=== PATIENT | female | born 1930 | race Caucasian/White ===

== ENCOUNTER 2020-04-09 14:11 | Inpatient (IN) | payer MEDICARE ==
[~2020-04-09] VITALS: Ht 162.6 cm; Wt 56.7 kg
[~2020-04-09 14:11] MED LIST: FLAGYL500 MG PO
[2020-04-09 14:35] VITALS: BP 127/79; BMI 21.5
--- NOTE | 2020-04-09 15:05 | NUR ---
PATIENT ADMITTED TO ROOM 2226. IV SITED TO [facility] AFTER TWO ATTEMPT WITH 22 GAUGE. BED LOW. BED ALARM ON. CALL HERNÁNDEZ AND PERSONAL ITEMS IN REACH. EDUCATION PROVIDED TO PATIENT AND DAUGHTER AT BEDSIDE THAT NURSE NEEDS UA FROM PATIENT. HAT IN TOILET. DAUGHTER WANTS TO LET PATIENT TRY TO USE HAT IN TOILET BEFORE CATH PATIENT.
[2020-04-09 15:12] LABS: BASOPHILS 0.3 % (0-2); EOSINOPHILS 0.8 % (0-7); HEMATOCRIT 38.1 % (36.0-48.0); HEMOGLOBIN 12.4 g/dL (12-16); IMMATURE GRANULOCYTES 0.4 % (0-5); LYMPHOCYTES 10.6 % (15-50); MCH 31.6 pg (26.0-34.0); MCHC 32.5 g/dL (31.0-37.0); MCV 96.9 fL (80.0-100.0); MEAN PLATELET VOLUME 9.9 fL (7.4-10.4); MONOCYTES 9.4 % (2-11); NEUTROPHILS 78.5 % (40-80); PLATELET COUNT 311 10x3/uL (130-400); RBC 3.93 10x6/uL (4.00-5.40); RDW 13.8 % (11.5-14.5); WBC 11.2 10x3/uL (4.8-10.8)
--- NOTE | 2020-04-09 15:13 | NUR ---
PT C/O SHORTNESS OF BREATH, O2 SATURATION DURING VS WAS BETWEEN 84-87, PLACED PT ON 2L OF OXYGWN WHICH BROUGHT PT UP TO 88-89 TURNED PT UP TO 4L AND PT IS NOW AT 93 ON 4L. CONTINUE WITH PLAN OF CARE
[2020-04-09] MEDS ORDERED: ACETAMINOPHEN325 MG PO (15:32)
[2020-04-09] MEDS ORDERED: TENORMIN25 MG PO (15:33)
[2020-04-09] MEDS ORDERED: FUROSEMIDE20 MG PO (15:34)
[2020-04-09] MEDS ORDERED: K-TAB10 MEQ PO (15:35)
[2020-04-09 15:39] LABS: BILIRUBIN NEGATIVE (NEGATIVE); KETONE NEGATIVE (NEGATIVE); NITRITE POSITIVE (NEGATIVE); UROBILINOGEN NORMAL (NORMAL)
[2020-04-09 15:41] LABS: WHITE CELLS - URINE >50 /hpf (0-5)
[2020-04-09 15:43] LABS: BACTERIA MANY /hpf (NONE SEEN); EPITHELIAL CELLS OCC /hpf (0-5)
[2020-04-09 15:50] LABS: CARBON DIOXIDE 25.6 mmol/L (21.0-32.0); CREATININE - SERUM 1.4 mg/dL (0.6-1.3); POTASSIUM - SERUM 4.6 mmol/L (3.5-5.1)
[2020-04-09 15:57] LABS: ALBUMIN 3.5 g/dL (3.4-5.0); BILIRUBIN - TOTAL 0.31 mg/dL (0.2-1.3); PROTEIN - SERUM 7.3 g/dL (6.4-8.2)
--- NOTE | 2020-04-09 18:50 | NUR ---
CONSENTS OBTAINED FOR PROCEDURE.
--- NOTE | 2020-04-09 19:30 | NUR ---
SITTING UP IN BED. ALERT AND ORIENTED TO SELF ONLY. CONFUSED. [place]. DAUGHTER AT BEDSIDE. DIFF ANSWERING QUESTIONS AND STAYING ON TASK. SOB NOTED WITH USE OF ABD ACCESSORY MUSCLES. O2 @ 4L/NC. NONPROD COUGH NOTED. SCABS NOTED TO RT MCALLISTER. URINE EMPTIED FROM BSC WAS DARK CLOUDY SURENDRA. HERNAN ALARM ON. AMB WITH ASSIST. PT HAS DEMENTIA. SALINE LOCK NOTED TO LT FOREARM. BBS DIMINISHED. NO ACUTE DISTRESS. SR ELEVATED X2. CL IN REACH.
[2020-04-09 20:00] VITALS: BP 142/71
--- NOTE | 2020-04-09 20:35 | NUR ---
MEDICATED WITH TYLENOL FOR C/O HEADACHE. CL IN REACH.
--- NOTE | 2020-04-09 21:05 | NUR ---
RECEIVED CALL FROM PHARMACY ASKING IF DR BUTTERFIELD STILL WANTS PT TO TAKE MACROBID CONSIDERING HER BUN/CR IS ELEVATED. SPOKE WITH DOUGLAS SALINAS REPORT CLERK FOR DR BUTTERFIELD WHO STATED THAT YES SHE NEEDS TO TAKE THE MACROBID. NOTIFIED DEANNA IN PHARMACY OF THIS.
--- NOTE | 2020-04-09 22:00 | NUR ---
SITTING UP ON SIDE OF BED. DAUGHTER AT BEDSIDE. O2 IS OFF. O2 PUT BACK ON PT. GIVEN APPLESAUCE FOR SNACK. INFORMED OF NPO AFTER MIDNIGHT AND PT AND DAUGHTER VERBALIZED UNDERSTANDING. CL IN REACH.
[2020-04-10] VITALS (12 sets, daily range): BP systolic 102–138; BP diastolic 46–68; Ht 162.6 cm; Wt 56.7 kg
--- NOTE | 2020-04-10 01:25 | NUR ---
NOTIFIED PHARMACY OF NEED TO VERIFY ROCEPHIN AND VIBRAMYCIN
--- NOTE | 2020-04-10 03:36 | NUR ---
SECOND IV ACCESS OBTAINED IN RT FOREARM WITH 22G. PT KIRA WELL. ASSISTED UP TO BSC TO VOID. BACK TO BED. HERNAN ON. DAUGHTER AT BEDSIDE. CL IN REACH.
--- NOTE | 2020-04-10 07:45 | NUR ---
RECEIVED BEDSIDE REPORT. PT A&O X4, DAUGHTER AT BEDSIDE STATES HER MOTHER SOMEITMES SHOWS S/S OF DEMENTIA. PIV IN LEFT FA, S/L, PATENT, NO REDNESS OR SWELLING. PIV IN RIGHT FA, S/L, PATENT, NO REDNESS OR SWELLING. BS DIMINISHED ALL LOBES, USE OF ACCESS MUSCLES. SKIN TEAR ON RIGHT MCALLISTER. BRUISES ON BILAT UPPER EXTREMITIES. PT ABLE TO AMBULATE TO BSC WITH ONE PERSON ASSIST. EDUCATED PT ON NEED FOR RESP CULTURE, CL AND NEEDS, VERBALIZED UNDERSTANDING. BED LOW, RAILS X2. CL IN REACH. WILL CONTINUE TO MONITOR.
[2020-04-10 07:50] LABS: BASOPHILS 0.2 % (0-2); EOSINOPHILS 0.6 % (0-7); HEMATOCRIT 38.7 % (36.0-48.0); HEMOGLOBIN 12.8 g/dL (12-16); IMMATURE GRANULOCYTES 0.3 % (0-5); LYMPHOCYTES 13.9 % (15-50); MCH 31.8 pg (26.0-34.0); MCHC 33.1 g/dL (31.0-37.0); MCV 96.3 fL (80.0-100.0); MONOCYTES 9.9 % (2-11); NEUTROPHILS 75.1 % (40-80); PLATELET COUNT 309 10x3/uL (130-400); RBC 4.02 10x6/uL (4.00-5.40); RDW 13.7 % (11.5-14.5); WBC 9.7 10x3/uL (4.8-10.8)
[2020-04-10 08:07] LABS: ANION GAP 13.5 mmol/L (8-16); CALCIUM 8.4 mg/dL (8.5-10.1); CARBON DIOXIDE 25.6 mmol/L (21.0-32.0); CREATININE - SERUM 1.2 mg/dL (0.6-1.3); POTASSIUM - SERUM 4.1 mmol/L (3.5-5.1); PROTEIN - SERUM 7.4 g/dL (6.4-8.2)
[2020-04-10 08:08] LABS: APTT 28.5 SECONDS (22.8-39.4); INR 1.13 (0.85-1.17); PROTIME 14.5 SECONDS (11.6-15.0)
--- NOTE | 2020-04-10 09:45 | NUR ---
REMOVED PIV IN RIGHT FA, CATHETER INTACT, NO REDNESS OR SWELLING, PT TOLERATED WELL. BED LOW, CL IN REACH.
--- NOTE | 2020-04-10 11:30 | NUR ---
RECEIVED PT FROM CT. VS WNL. PT A&O X2, DISORINTATED TO TIME AND SITUATION. BED LOW, WILL CONTINUE TO MONITOR Q 15 MIN.
--- NOTE | 2020-04-10 18:35 | NUR ---
PIV IN LEFT FOREARM INFILTRATED. REMOVED PIV, CATHETER INTACT, PT TOLERATED WELL. CL IN REACH, BED LOW.
[2020-04-10 20:43] LABS: MACROPHAGES BF 3 %; MESOTHELIALS BF 2 %; NEUT - BF 6 %
--- NOTE | 2020-04-10 23:44 | NUR ---
HAS BEEN SLEEPING. ATTEMPTED TO RESTART IV BUT PT REFUSES AND IS AGITATED. HAS PULLED O2 OFF AND REFUSES TO PUT IT BACK ON. DAUGHTER AT BEDSIDE.
--- NOTE | 2020-04-10 23:55 | NUR ---
SAO2% 90%. TALKED PT INTO LETTING STAFF PUT O2 BACK ON FOR THE MOMENT
--- NOTE | 2020-04-11 01:46 | NUR ---
DOUGLAS SALINAS HERE. NOTIFIED OF PT REFUSAL OF IV. NEW ORDERS NOTED TO D/C ROCEPHIN AND DOXY IV AND START DOXY PO AND OMNICEF PO X 7 DAYS.
[2020-04-11 04:00] VITALS: BP 109/44
--- NOTE | 2020-04-11 04:00 | NUR ---
ASSISTED UP TO BSC TO VOID. VOIDED SMALL AMOUNT. WAS INCONT OF URINE IN ADULT BRIEF. ASSISTED BACK TO BED. O2 @ 3L/NC. DAUGHTER AT BEDSIDE. SR ELEVATED X2. CL IN REACH. HERNAN ALARM ON.
[2020-04-11 05:14] LABS: BASOPHILS 0.2 % (0-2); EOSINOPHILS 1.1 % (0-7); HEMATOCRIT 36.5 % (36.0-48.0); HEMOGLOBIN 12.2 g/dL (12-16); IMMATURE GRANULOCYTES 0.3 % (0-5); LYMPHOCYTES 14.9 % (15-50); MCH 31.5 pg (26.0-34.0); MCHC 33.4 g/dL (31.0-37.0); MEAN PLATELET VOLUME 10.3 fL (7.4-10.4); MONOCYTES 8.5 % (2-11); PLATELET COUNT 288 10x3/uL (130-400); RBC 3.87 10x6/uL (4.00-5.40); RDW 13.8 % (11.5-14.5); WBC 10.5 10x3/uL (4.8-10.8)
[2020-04-11 05:15] LABS: MCV 94.3 fL (80.0-100.0)
[2020-04-11 05:18] LABS: ALBUMIN 2.7 g/dL (3.4-5.0); ANION GAP 14.2 mmol/L (8-16); BILIRUBIN - TOTAL 0.38 mg/dL (0.2-1.3); CALCIUM 8.4 mg/dL (8.5-10.1); CARBON DIOXIDE 23.5 mmol/L (21.0-32.0); CREATININE - SERUM 1.3 mg/dL (0.6-1.3); POTASSIUM - SERUM 3.7 mmol/L (3.5-5.1); PROTEIN - SERUM 6.6 g/dL (6.4-8.2)
--- NOTE | 2020-04-11 06:15 | NUR ---
RESTING WITH EYES CLOSED. RESP NONLABORED. O2 @ 3L/NC. DAUGHTER AT BEDSIDE. NO DISTRESS. CL IN REACH. HERNAN ALARM ON.
--- NOTE | 2020-04-11 07:47 | NUR ---
PATIENT RESTING IN BED. CALL LIGHT IN REACH, DENIES PAIN OR NEEDS. WILL CONTINUE TO MONITOR.
[2020-04-11 09:13] LABS: ANA REFLEX - DIRECT Negative (Negative)
[2020-04-11 10:22] VITALS: BP 115/63
[2020-04-11 13:46] VITALS: BP 147/69
[2020-04-11 18:07] VITALS: BP 109/56
[2020-04-11 19:08] LABS: ACID FAST SMEAR Negative (()); AFB SPECIMEN PROCESSING Not Indicated (())
[2020-04-11 20:00] VITALS: BP 111/53
[2020-04-12 04:00] VITALS: BP 117/53
--- NOTE | 2020-04-12 04:39 | NUR ---
ASSESSED AT THE BEGINNING OF THE SHIFT. PT IS ALERT AND ORIENTED, ABLE TO VERBALIZE NEEDS. HER FAMILY REMAINED AT THE BEDSIDE. WE ARE ASSISTING HER UP TO VOID IN THE BSC AND SHE IS ABLE TO DO IT WITH ONE PERSON ASSIT BUT SHE IS WEAK. STILL HAS A SMALL DRESSING OVER HER THORACENTISIS AREA BUT IT LOOKS GOOD. O2 AT 3 LITERS AND THERE IS A HERNAN ON HER BED.
--- NOTE | 2020-04-12 07:44 | NUR ---
PATIENT IN BED ASLEEP. FAMILY AT BEDSIDE. DENIES PAIN OR NEEDS. BED LOW POSITION, CALL LIGHT IN REACH. WILL CONTINUE TO MONITOR.
--- NOTE | 2020-04-12 08:59 | NUR ---
IV CATH REMOVED FROM LEFT ARM. NO BLOOD RETURN AND SWELLED UP WHEN ATTEMPTING TO FLUSH. CATH TIP INTACT.
[2020-04-12 09:52] VITALS: BP 138/59
--- NOTE | 2020-04-12 13:04 | NUR ---
Nutrition follow-up: Diet advanced to regular as tolerated with Ensure TID PO intake ~70% average of last 7 meals Labs reviewed Wt: 124# +BM RDN following.
[2020-04-12 13:23] VITALS: BP 124/61
[2020-04-12 14:10] LABS: FUNGUS STAIN Final report (())
[2020-04-12 17:49] VITALS: BP 111/58
[2020-04-13 04:00] VITALS: BP 101/44
[2020-04-13 05:59] LABS: BASOPHILS 0.3 % (0-2); EOSINOPHILS 3.1 % (0-7); HEMATOCRIT 31.7 % (36.0-48.0); HEMOGLOBIN 10.3 g/dL (12-16); IMMATURE GRANULOCYTES 0.7 % (0-5); LYMPHOCYTES 11.3 % (15-50); MCHC 32.5 g/dL (31.0-37.0); MCV 95.5 fL (80.0-100.0); MEAN PLATELET VOLUME 10.2 fL (7.4-10.4); MONOCYTES 10.7 % (2-11); NEUTROPHILS 73.9 % (40-80); PLATELET COUNT 270 10x3/uL (130-400); RBC 3.32 10x6/uL (4.00-5.40); RDW 14.4 % (11.5-14.5); WBC 8.8 10x3/uL (4.8-10.8)
[2020-04-13 06:01] LABS: ANION GAP 13.1 mmol/L (8-16); CALCIUM 8.3 mg/dL (8.5-10.1); CARBON DIOXIDE 23.6 mmol/L (21.0-32.0); CREATININE - SERUM 1.3 mg/dL (0.6-1.3); POTASSIUM - SERUM 3.7 mmol/L (3.5-5.1)
--- NOTE | 2020-04-13 08:00 | NUR ---
ASSESSMENT PER FLOW SHEET. PATIENT IS WITHOUT DISTRESS.FALL PREVENTION IN PLACE WITH HERNAN.FAMILY AT BEDSIDE
[2020-04-13 09:49] VITALS: BP 129/59
[2020-04-13 12:42] VITALS: BP 123/65
[2020-04-13 17:39] VITALS: BP 136/68
--- NOTE | 2020-04-13 18:40 | NUR ---
REMAINS WITHOUT NEEDS,WITHOUT CHANGE. CONT PLAN OF CARE
[2020-04-13 20:00] VITALS: BP 121/47
--- NOTE | 2020-04-13 20:30 | NUR ---
AWAKE. LYING IN BED. ORIENTED TO SELF AND PLACE. CONFUSED. DAUGHTER AT BEDSIDE. RESP IRREG. SOB WITH EXERTION. O2 @ 3L/NC. NO IV ACCESS. DENIES PAIN. INCONT OF BLADDER AT TIMES. ASSISTED UP TO BR TO VOID. BRIEF CHANGED. NO DISTRESS. HERNAN ALARM ON. SR ELEVATED X2. CL IN REACH.
--- NOTE | 2020-04-14 00:05 | NUR ---
PTS DAUGHTER REFUSED MIDNIGHT V/S BECAUSE PT IS SLEEPING WELL AT THIS TIME.
--- NOTE | 2020-04-14 01:40 | NUR ---
ASSISTED UP TO BSC PER STAFF X2 TO VOID. GAIT IS VERY UNSTEADY. WEAKNESS NOTED. BACK TO BED AND HERNAN ON. DAUGHTER AT BEDSIDE.
[2020-04-14 04:00] VITALS: BP 123/55
[2020-04-14] MEDS ORDERED: OMNICEF300 MG PO (07:17)
[2020-04-14 09:17] VITALS: BP 123/53
--- NOTE | 2020-04-14 09:21 | NUR ---
ASSESSMENT PER FLOW SHEET. PATIENT IS WITHOUT DISTRESS.FAMILY AT BEDSIDE.PATIENT WILL DC TODAY SOMETIME BACK TO [facility]. HERNAN ALARM ON AND WORKING.
[2020-04-14 13:08] VITALS: BP 136/67
--- NOTE | 2020-04-14 16:51 | MORECARE ---
CASE MANAGEMENT DISCHARGE SUMMARY PATIENT: JOCELYN OROZCO UNIT: [id number] ADM DATE: 04/09/20 AGE: 89 : [birth year] SEX: F ROOM/BED: D.2226 AUTHOR: RADHADOC PHYSICIAN: REFERRING PHYSICIAN: REMA BUTTERFIELD MD DATE OF SERVICE: 04/14/20 Discharge Plan Patient Name: JOCELYN OROZCO Facility[facility]:[place] : 1930 Planned Disposition: Longterm Facility Anticipated Discharge Date: Discharge Date: Expected LOS: Initial Reviewer: [email or web address] Initial Review Date: 04/09/2020 Generated: 04/14/20 5:50 pm Comments DCP- Discharge Planning Updated by [id number]: Jaymie Valentine on 04/14/20 3:[address] Patient Name: JOCELYN OROZCO Admission Status: Elective Accout number: [id number] Admission Date: 04-09-2020 : 1930 Admission Diagnosis:PLEURAL EFFUSION, NOT ELSEWHERE CLASSIFIED Attending: REMA BUTTERFIELD Current LOS: 5 Anticipated DC Date: Planned Disposition: Primary Insurance: MEDICARE A & B Discharge Planning Comments: CM met with patient and her daughter who is at bedside to complete initial dc planning assessment. CM educated patient on the CM role and verbal consent given by patient to complete assessment. CM verified patient's address, phone number, and emergency contact phone numbers. Patient lives at [facility] in a long[facility]term [facility] bed. At discharge patient plans to return to [place] in a [facility] bed for rehab and feels this is a safe discharge. DHRUV signed to return to [place]. Transportation provider at discharge will be as designated by [facility]. The patient is on continuous oxygen so transportation provider will provide oxygen during route. CM called [facility] and spoke with Magaly about pending discharge. the patient will need to have a Covid neg test prior to admission. CM spoke with Coleman COLE about screening and orders placed. Will await results. CM will continue to follow and will assist as needed with dc plans/needs. DC IMM delivered, explained, signed by the patient, and placed in chart. Signed form also left with the patient. Desk Pens Assembler: Jaymie Valentine MSN,RN,CM External Providers External Provider: [facility] Next Contact Date: Service Request Date: Service Type: Resolution: Reviewer: Comments: Coverage Notice Reviewer: [id number] - Jaymie Valentine Notice Issued Date-Time: 04/13/2020 16:34 Notice Type: IM Discharge Notice Notice Delivered To: Patient Relationship to Patient: Hair Or Beauty Salon Manager Name: Delivery Method: HAND - Hand Delivered Joan Days: Prior Verbal Notification: Recipient Understood Notice: Yes Recipient Signature: Yes Med Rec Note Co-signed by Attending: Coverage Notice Comment: dc imm delivered Patient Name: JOCELYN OROZCO Page [id number] at 1651 All edits/amendments must be made on the electronic document DICTATION DATE: 04/14/201650 MODEL DRESSER: EDDIE 04/14/201650 RPT#: [id number] DC DATE: STATUS: ADM IN [id number] [place] [address] END OF REPORT
[2020-04-14 17:29] VITALS: BP 115/59
[2020-04-14 20:00] VITALS: BP 136/60
[2020-04-15 04:00] VITALS: BP 132/60
--- NOTE | 2020-04-15 08:30 | NUR ---
PATIENT IN BED WITH NO COMPLAINTS OR SIGNS OF DISTRESS. FAMILY AT BEDSIDE. CALL LIGHT WITHIN REACH.
[2020-04-15 09:27] VITALS: BP 113/46
[2020-04-15 13:45] VITALS: BP 117/61
[2020-04-15 17:48] VITALS: BP 136/67
--- NOTE | 2020-04-15 18:30 | NUR ---
PATIENT IN BED WITH FAMILY AT BEDSIDE. PLACED DUODERM OVER DRY MOLE ON BACK. STATED IT WAS HURTING. CALL LIGHT WITHIN REACH.
[2020-04-15 20:28] VITALS: BP 128/66
[2020-04-16 00:24] VITALS: BP 136/58
[2020-04-16 04:51] VITALS: BP 123/58
[2020-04-16 06:41] LABS: BASOPHILS 0.4 % (0-2); EOSINOPHILS 4.1 % (0-7); HEMATOCRIT 32.5 % (36.0-48.0); HEMOGLOBIN 10.5 g/dL (12-16); IMMATURE GRANULOCYTES 0.4 % (0-5); LYMPHOCYTES 11.7 % (15-50); MCH 31.3 pg (26.0-34.0); MCHC 32.3 g/dL (31.0-37.0); MCV 96.7 fL (80.0-100.0); MEAN PLATELET VOLUME 9.8 fL (7.4-10.4); MONOCYTES 12.6 % (2-11); NEUTROPHILS 70.8 % (40-80); PLATELET COUNT 308 10x3/uL (130-400); RBC 3.36 10x6/uL (4.00-5.40); RDW 14.3 % (11.5-14.5); WBC 7.3 10x3/uL (4.8-10.8)
[2020-04-16 06:42] LABS: INR 1.04 (0.85-1.17); PROTIME 13.6 SECONDS (11.6-15.0)
[2020-04-16 06:56] LABS: ANION GAP 15.9 mmol/L (8-16); CALCIUM 8.8 mg/dL (8.5-10.1); CARBON DIOXIDE 22.9 mmol/L (21.0-32.0); CREATININE - SERUM 1.1 mg/dL (0.6-1.3); POTASSIUM - SERUM 3.8 mmol/L (3.5-5.1)
--- NOTE | 2020-04-16 07:36 | NUR ---
ALERT AND ORIENTED. LUNGS DIMINISHED BILATERALLY. HEART SOUNDS S1 AND S2 HEARD IN ALL ZHANG. BOWEL SOUNDS ACTIVE X 4. IV STARTED TO RFA AFTER ONE ATTEMP WITH 22 GAUGE. DENIES NEEDS. BED LOW. CALL HERNÁNDEZ AND PERSONAL ITEMS IN REACH. DAUGHTER AT BEDSIDE. WILL CONTINUE TO MONITOR.
[2020-04-16 08:41] VITALS: BP 127/60
--- NOTE | 2020-04-16 10:58 | NUR ---
PATIENT DAUGHTER AT BEDSIDE MADE DECISION WITH SISTER AND IR TEAM THAT DOES NOT WANT TO HAVE LYMPH NODE BIOPSY PROCEDURE TODAY. STATES PATIENT WILL NOT BE PERSUING TREATMENT EVEN IF RESULTS COME BACK MALIGNANT. PATIENT AND DAUGHTER STATES WANT TO GO HOME AND PERSUE OUTPATIENT OPTIONS. DOUGLAS LOPEZ MADE AWARE.
--- NOTE | 2020-04-16 11:53 | NUR ---
RESTING IN BED. DENIES NEEDS. WILL CONTINUE TO MONITOR.
[2020-04-16 13:12] VITALS: BP 132/70
[2020-04-16 16:24] VITALS: BP 127/71
[2020-04-16 20:00] VITALS: BP 130/78
[2020-04-17 04:00] VITALS: BP 136/65
[2020-04-17 06:43] LABS: ANION GAP 13.7 mmol/L (8-16); CALCIUM 9.1 mg/dL (8.5-10.1); CARBON DIOXIDE 24.3 mmol/L (21.0-32.0)
[2020-04-17 06:48] LABS: BASOPHILS 0.5 % (0-2); EOSINOPHILS 4.4 % (0-7); HEMATOCRIT 36.2 % (36.0-48.0); HEMOGLOBIN 11.7 g/dL (12-16); IMMATURE GRANULOCYTES 0.2 % (0-5); LYMPHOCYTES 13.8 % (15-50); MCH 31.2 pg (26.0-34.0); MCHC 32.3 g/dL (31.0-37.0); MCV 96.5 fL (80.0-100.0); MONOCYTES 11.3 % (2-11); NEUTROPHILS 69.8 % (40-80); PLATELET COUNT 335 10x3/uL (130-400); RBC 3.75 10x6/uL (4.00-5.40); RDW 14.2 % (11.5-14.5); WBC 8.3 10x3/uL (4.8-10.8)
[2020-04-17 09:18] VITALS: BP 146/64
[2020-04-17 12:27] VITALS: BP 139/70
--- NOTE | 2020-04-17 13:32 | NUR ---
Nutrition follow-up: Diet: regular PO Intake ~50% of most meals Labs reviewed Wt: 124# Ensure with meals RND following.
[2020-04-17 18:01] VITALS: BP 135/75
[2020-04-17 20:00] VITALS: BP 127/79
--- NOTE | 2020-04-17 20:00 | NUR ---
PT SITTING UP IN BED WITHOUT DISTRESS, DAUGHTER AT BEDSIDE. DENIES NEEDS AT THIS TIME. CL IN REACH, WILL CTM
--- NOTE | 2020-04-17 21:00 | NUR ---
PT STATES SHE HAS A REALLY BAD HEADACHE. GAVE TYLENOL ORDERED. DENIES OTHER NEEDS, WILL CTM
--- NOTE | 2020-04-17 23:30 | NUR ---
PT STATES SHE IS HAVING PAIN IN HER CHEST. CANNOT DESCRIBE IT. VSS. DAUGHTER STATES SHE HAD BEEN COMPLAINING EARLIER ABOUT HER STOMACH. GAVE PT RAMÓN, WILL SAHILM
[2020-04-18] VITALS: BP 127/72
--- NOTE | 2020-04-18 00:30 | NUR ---
PT STATES PAIN IN HER CHEST IS BETTER. ASSISTED TO BEDSIDE COMMODE AND BACK TO BED TO VOID. DENIES OTHER NEEDS. CL IN REACH, WILL CTM
[2020-04-18 04:00] VITALS: BP 122/57
--- NOTE | 2020-04-18 07:15 | NUR ---
RECEIVED BEDSIDE REPORT. PT LAYING IN BED, A&O X2, DISORIENTATED TO TIME AND SITUATION. DENIES PAIN. PIV IN RIGHT WRIST. BRUISES ON BILAT UPPER EXTREMITIES. PT ABLE TO AMBULATE WITH ONE PERSON ASSIST. EDUCATED PT AND DAUGHTER ON CL AND NEEDS. BED LOW, RAILS X2. CL IN REACH, WILL CONTINUE TO MONITOR.
[2020-04-18 09:48] VITALS: BP 121/74
--- NOTE | 2020-04-18 10:30 | NUR ---
PT AND DAUGHTER WANTING TO KNOW WHAT IS GOING ON WITH D/C TODAY. SPOKE WITH CM, WAITING TO HEAR BACK FROM [facility] ON ROOM AVAILABILITY.
--- NOTE | 2020-04-18 11:45 | NUR ---
SPOKE WITH NURSE AT [facility] ABOUT PT BEING D/C AND TRANSFERRING BACK TO FACILITY. NURSE REPORTED THAT THEY HAD NO KNOWLEDGE OF PT BEING D/C FROM HERE AND BEING TRANSFERRED BACK. SPOKE WITH OUSMANE, SHE HAS BEEN SPEAKING TO JONATHAN OMER AND SHE HAS ALL INFORMATION NEEDED. WAITING FOR NURSE AT [facility] TO CALL FOR REPORT.
[2020-04-18 12:00] VITALS: BP 138/50
--- NOTE | 2020-04-18 12:36 | MORECARE ---
CASE MANAGEMENT DISCHARGE SUMMARY PATIENT: JOCELYN OROZCO UNIT: [id number] ADM DATE: 04/09/20 AGE: 89 : [birth year] SEX: F ROOM/BED: D.2226 AUTHOR: RADHADOC PHYSICIAN: REFERRING PHYSICIAN: REMA BUTTERFIELD MD DATE OF SERVICE: 04/18/20 Discharge Plan Patient Name: JOCELYN OROZCO Facility: [facility]:[place] : 1930 Planned Disposition: Assisted Facility Anticipated Discharge Date: Discharge Date: Expected LOS: Initial Reviewer: [id number] Initial Review Date: 04/09/2020 Generated: 04/18/20 1:35 pm Comments DCP- Discharge Planning Updated by [id number]: Jaymie Valentine on 04/14/20 3:[address] Patient Name: JOCELYN OROZCO Admission Status: Elective Accout number: [id number] Admission Date: 04-09-2020 : 1930 Admission Diagnosis:PLEURAL EFFUSION, NOT ELSEWHERE CLASSIFIED Attending: REMA BUTTERFIELD Current LOS: 5 Anticipated DC Date: Planned Disposition: Primary Insurance: MEDICARE A & B Discharge Planning Comments: CM met with patient and her daughter who is at bedside to complete initial dc planning assessment. CM educated patient on the CM role and verbal consent given by patient to complete assessment. CM verified patient's address, phone number, and emergency contact phone numbers. Patient lives at [facility] in a long[facility]term [facility] bed. At discharge patient plans to return to [place] in a [facility] bed for rehab and feels this is a safe discharge. DHRUV signed to return to [place]. Transportation provider at discharge will be as designated by [facility]. The patient is on continuous oxygen so transportation provider will provide oxygen during route. CM called [facility] and spoke with Magaly about pending discharge. the patient will need to have a Covid neg test prior to admission. CM spoke with Coleman COLE about screening and orders placed. Will await results. CM will continue to follow and will assist as needed with dc plans/needs. DC IMM delivered, explained, signed by the patient, and placed in chart. Signed form also left with the patient. Pharmacist In Charge: Jaymie Valentine MSN,RN,CM Coverage Notice Reviewer: [id number] - Jaymie Valentine Notice Issued Date-Time: 04/13/2020 16:34 Notice Type: IM Discharge Notice Notice Delivered To: Patient Relationship to Patient: Clinical Quality Assurance Associate Name: Delivery Method: HAND - Hand Delivered Joan Days: Prior Verbal Notification: Recipient Understood Notice: Yes Recipient Signature: Yes Med Rec Note Co-signed by Attending: Coverage Notice Comment: dc imm delivered Last DP export: 04/14/20 3:51 pm Patient Name: JOCELYN OROZCO Page [phone] at 1236 All edits/amendments must be made on the electronic document DICTATION DATE: 04/18/20 1236 MASTER CRAFTSMAN: EDDIE 04/18/20 1236 RPT#: [id number] DC DATE: STATUS: ADM IN [facility] [address] [place] [address] END OF REPORT
--- NOTE | 2020-04-18 12:44 | MORECARE ---
CASE MANAGEMENT DISCHARGE SUMMARY PATIENT: JOCELYN OROZCO UNIT: [id number] ADM DATE: 04/09/20 AGE: 89 : [birth year] SEX: F ROOM/BED: D.2226 AUTHOR: RADHADOC PHYSICIAN: REFERRING PHYSICIAN: REMA BUTTERFIELD MD DATE OF SERVICE: 04/18/20 Discharge Plan Patient Name: JOCELYN OROZCO Facility: [facility]:[place] : 1930 Planned Disposition: Penitentiary Facility Anticipated Discharge Date: Discharge Date: Expected LOS: Initial Reviewer: [email or web address] Initial Review Date: 04/09/2020 Generated: 04/18/20 1:43 pm Comments DCP- Discharge Planning Updated by [email or web address]: Katrin Cain on 04/18/20 11:[address] Patient Name: JOCELYN OROZCO Admission Status: Elective Accout number: [id number] Admission Date: 04-09-2020 : 1930 Admission Diagnosis:PLEURAL EFFUSION, NOT ELSEWHERE CLASSIFIED Attending: REMA BUTTERFIELD Current LOS: 9 Anticipated DC Date: Planned Disposition: Penitentiary Facility Primary Insurance: MEDICARE A & B Discharge Planning Comments: MESSAGED DOUGLAS CHRIS TO NOTIFY DAUGHTER IS READY FOR HER MOM TO GO BACK TO [facility]. WAITING CALL BACK. I AM FAXING UPDATES TO [facility] NOW. Backend Java Developer: Katrin Cain DCP- Discharge Planning Updated by [id number]: Jaymie Valentine on 04/14/20 3:[address] Patient Name: JOCELYN OROZCO Admission Status: Elective Accout number: [id number] Admission Date: 04-09-2020 : 1930 Admission Diagnosis:PLEURAL EFFUSION, NOT ELSEWHERE CLASSIFIED Attending: REMA BUTTERFIELD Current LOS: 5 Anticipated DC Date: Planned Disposition: Primary Insurance: MEDICARE A & B Discharge Planning Comments: CM met with patient and her daughter who is at bedside to complete initial dc planning assessment. CM educated patient on the CM role and verbal consent given by patient to complete assessment. CM verified patient's address, phone number, and emergency contact phone numbers. Patient lives at [facility] in a long[facility]term [facility] bed. At discharge patient plans to return to [place] in a [facility] bed for rehab and feels this is a safe discharge. DHRUV signed to return to [place]. Transportation provider at discharge will be as designated by [facility]. The patient is on continuous oxygen so transportation provider will provide oxygen during route. CM called [facility] and spoke with Magaly about pending discharge. the patient will need to have a Covid neg test prior to admission. CM spoke with Coleman COLE about screening and orders placed. Will await results. CM will continue to follow and will assist as needed with dc plans/needs. DC IMM delivered, explained, signed by the patient, and placed in chart. Signed form also left with the patient. Backend Java Developer: Jaymie Valentine MSN,RN,CM DCPIA - Discharge Planning Initial Assessment Updated by [id number]: Katrin Cain on 04/18/20 12:39 pm * Is the patient Alert and Oriented? Yes * Preadmission Environment Longterm Acute Care Facility * [facility] Name [facility] * Additional services required to return to the preadmission environment? No * Can the patient safely return to the preadmission environment? Yes * Has this patient been hospitalized within the prior 30 days at any hospital? No Coverage Notice Reviewer: [id number] - Jaymie Valentine Notice Issued Date-Time: 04/13/2020 16:34 Notice Type: IM Discharge Notice Notice Delivered To: Patient Relationship to Patient: Property Staff Accountant Name: Delivery Method: HAND - Hand Delivered Joan Days: Prior Verbal Notification: Recipient Understood Notice: Yes Recipient Signature: Yes Med Rec Note Co-signed by Attending: Coverage Notice Comment: dc imm delivered Last DP export: 04/18/20 11:36 a Patient Name: JOCELYN OROZCO Page [phone] at 1244 All edits/amendments must be made on the electronic document DICTATION DATE: 04/18/20 1243 VENETIAN BLIND WORKER: EDDIE 04/18/20 1243 RPT#: [id number] DC DATE: STATUS: ADM IN [facility] [address] [place] [address] END OF REPORT
--- NOTE | 2020-04-18 14:50 | MORECARE ---
CASE MANAGEMENT DISCHARGE SUMMARY PATIENT: JOCELYN OROZCO UNIT: [id number] ADM DATE: 04/09/20 AGE: 89 : [birth year] SEX: F ROOM/BED: D.2226 AUTHOR: RADHADOC PHYSICIAN: REFERRING PHYSICIAN: REMA BUTTERFIELD MD DATE OF SERVICE: 04/18/20 Discharge Plan Patient Name: JOCELYN OROZCO Facility: [facility]:[place] : 1930 Planned Disposition: Prison Facility Anticipated Discharge Date: Discharge Date: Expected LOS: Initial Reviewer: [email or web address] Initial Review Date: 04/09/2020 Generated: 04/18/20 3:49 pm Comments DCP- Discharge Planning Updated by [id number]: Katrin Cain on 04/18/20 1:[address] Patient Name: JOCELYN OROZCO Admission Status: Elective Accout number: [id number] Admission Date: 04-09-2020 : 1930 Admission Diagnosis:PLEURAL EFFUSION, NOT ELSEWHERE CLASSIFIED Attending: REMA BUTTERFIELD Current LOS: 9 Anticipated DC Date: Planned Disposition: Prison Facility Primary Insurance: MEDICARE A & B Discharge Planning Comments: MESSAGED DOUGLAS CHRIS TO NOTIFY DAUGHTER IS READY FOR HER MOM TO GO BACK TO [facility]. WAITING CALL BACK. I AM FAXING UPDATES TO [facility] NOW. Planer Offbearer: Katrin Cain Appended by Katrin Cain on 04/18/2020 14:40 CDT: DAUGHTER WILL TRANSPORT PATIENT BACK TO NURSING FACILITY. SABA MATTHEW WILL CALL ME WHEN BED IS READY THEN RN CAN CALL REPORT. DCP- Discharge Planning Updated by [id number]: Jaymie Valentine on 04/14/20 3:[address] Patient Name: JOCELYN OROZCO Admission Status: Elective Accout number: [id number] Admission Date: 04-09-2020 : 1930 Admission Diagnosis:PLEURAL EFFUSION, NOT ELSEWHERE CLASSIFIED Attending: REMA BUTTERFIELD Current LOS: 5 Anticipated DC Date: Planned Disposition: Primary Insurance: MEDICARE A & B Discharge Planning Comments: CM met with patient and her daughter who is at bedside to complete initial dc planning assessment. CM educated patient on the CM role and verbal consent given by patient to complete assessment. CM verified patient's address, phone number, and emergency contact phone numbers. Patient lives at [facility] in a long[facility]term [facility] bed. At discharge patient plans to return to [place] in a [facility] bed for rehab and feels this is a safe discharge. DHRUV signed to return to [place]. Transportation provider at discharge will be as designated by [facility]. The patient is on continuous oxygen so transportation provider will provide oxygen during route. CM called [facility] and spoke with Magaly about pending discharge. the patient will need to have a Covid neg test prior to admission. CM spoke with Coleman COLE about screening and orders placed. Will await results. CM will continue to follow and will assist as needed with dc plans/needs. DC IMM delivered, explained, signed by the patient, and placed in chart. Signed form also left with the patient. Planer Offbearer: Jaymie Valentine MSN,RN,CM DCPIA - Discharge Planning Initial Assessment Updated by [id number]: Katrin Cain on 04/18/20 12:39 pm * Is the patient Alert and Oriented? Yes * Preadmission Environment [facility] * Facility Name [facility] * Additional services required to return to the preadmission environment? No * Can the patient safely return to the preadmission environment? Yes * Has this patient been hospitalized within the prior 30 days at any hospital? No Coverage Notice Reviewer: [id number] Ruth Valentine Notice Issued Date-Time: 04/13/2020 16:34 Notice Type: IM Discharge Notice Notice Delivered To: Patient Relationship to Patient: Sales Operations Analyst Name: Delivery Method: HAND - Hand Delivered Joan Days: Prior Verbal Notification: Recipient Understood Notice: Yes Recipient Signature: Yes Med Rec Note Co-signed by Attending: Coverage Notice Comment: dc imm delivered Reviewer: [email or web address] Ruth Cain Notice Issued Date-Time: 04/18/2020 14:39 Notice Type: IM Discharge Notice Notice Delivered To: Patient Relationship to Patient: Sales Operations Analyst Name: Delivery Method: - Joan Days: Prior Verbal Notification: Recipient Understood Notice: Recipient Signature: Med Rec Note Co-signed by Attending: Coverage Notice Comment: Last DP export: 04/18/20 11:44 a Patient Name: JOCELYN OROZCO Page [phone] at 1450 All edits/amendments must be made on the electronic document DICTATION DATE: 04/18/201448 STATE TROOPER: EDDIE 04/18/201448 RPT#: [id number] DC DATE: STATUS: ADM IN [facility] [address] [place] [address] END OF REPORT
--- NOTE | 2020-04-19 08:55 | MORECARE ---
CASE MANAGEMENT DISCHARGE SUMMARY PATIENT: JOCELYN OROZCO UNIT: [id number] ADM DATE: 04/09/20 AGE: 89 : [birth year] SEX: F ROOM/BED: D.2226 AUTHOR: RADHADOC PHYSICIAN: REFERRING PHYSICIAN: REMA BUTTERFIELD MD DATE OF SERVICE: 04/19/20 Discharge Plan Patient Name: JOCELYN OROZCO Facility: [facility]:[place] : 1930 Planned Disposition: Penitentiary Facility Anticipated Discharge Date: Discharge Date: 04/18/2020 Expected LOS: Initial Reviewer: [id number] Initial Review Date: 04/09/2020 Generated: 04/19/20 9:54 am Comments DCP- Discharge Planning Updated by [email or web address]: Katrin Cain on 04/18/20 1:[address] Patient Name: JOCELYN OROZCO Admission Status: Elective Accout number: [id number] Admission Date: 04-09-2020 : 1930 Admission Diagnosis:PLEURAL EFFUSION, NOT ELSEWHERE CLASSIFIED Attending: REMA BUTTERFIELD Current LOS: 9 Anticipated DC Date: Planned Disposition: Penitentiary Facility Primary Insurance: MEDICARE A & B Discharge Planning Comments: MESSAGED DOUGLAS CHRIS TO NOTIFY DAUGHTER IS READY FOR HER MOM TO GO BACK TO [facility]. WAITING CALL BACK. I AM FAXING UPDATES TO [facility] NOW. Merchandise Planning Manager: Katrin aCin Appended by Katrin Cain on 04/18/2020 14:40 CDT: DAUGHTER WILL TRANSPORT PATIENT BACK TO NURSING FACILITY. SABA MATTHEW WILL CALL ME WHEN BED IS READY THEN RN CAN CALL REPORT. DCP- Discharge Planning Updated by [id number]: Jaymie Valentine on 04/14/20 3:[address] Patient Name: JOCELYN OROZCO Admission Status: Elective Accout number: [id number] Admission Date: 04-09-2020 : 1930 Admission Diagnosis:PLEURAL EFFUSION, NOT ELSEWHERE CLASSIFIED Attending: REMA BUTTERFIELD Current LOS: 5 Anticipated DC Date: Planned Disposition: Primary Insurance: MEDICARE A & B Discharge Planning Comments: CM met with patient and her daughter who is at bedside to complete initial dc planning assessment. CM educated patient on the CM role and verbal consent given by patient to complete assessment. CM verified patient's address, phone number, and emergency contact phone numbers. Patient lives at [facility] in a long-term [facility] bed. At discharge patient plans to return to [place] in a [facility] bed for rehab and feels this is a safe discharge. DHRUV signed to return to [place]. Transportation provider at discharge will be as designated by [facility]. The patient is on continuous oxygen so transportation provider will provide oxygen during route. CM called [facility] and spoke with Magaly about pending discharge. the patient will need to have a Covid neg test prior to admission. CM spoke with Coleman COLE about screening and orders placed. Will await results. CM will continue to follow and will assist as needed with dc plans/needs. DC IMM delivered, explained, signed by the patient, and placed in chart. Signed form also left with the patient. Merchandise Planning Manager: Jaymie Valentine MSN,RN,CM DCPIA - Discharge Planning Initial Assessment Updated by [id number]: Katrin Cain on 04/18/20 12:39 pm * Is the patient Alert and Oriented? Yes * Preadmission Environment [facility] Facility * Facility Name [facility] * Additional services required to return to the preadmission environment? No * Can the patient safely return to the preadmission environment? Yes * Has this patient been hospitalized within the prior 30 days at any hospital? No Coverage Notice Reviewer: [id number] - Jaymie Valentine Notice Issued Date-Time: 04/13/2020 16:34 Notice Type: IM Discharge Notice Notice Delivered To: Patient Relationship to Patient: Hose Cementer Name: Delivery Method: HAND - Hand Delivered Joan Days: Prior Verbal Notification: Recipient Understood Notice: Yes Recipient Signature: Yes Med Rec Note Co-signed by Attending: Coverage Notice Comment: dc imm delivered Reviewer: [id number] Ruth Cain Notice Issued Date-Time: 04/18/2020 14:39 Notice Type: IM Discharge Notice Notice Delivered To: Patient Relationship to Patient: Hose Cementer Name: Delivery Method: - Joan Days: Prior Verbal Notification: Recipient Understood Notice: Recipient Signature: Med Rec Note Co-signed by Attending: Coverage Notice Comment: Last DP export: 04/18/20 1:50 p Patient Name: JOCELYN OROZCO Page [id number] at 0855 All edits/amendments must be made on the electronic document DICTATION DATE: 04/19/20853 SEAT COVER INSTALLER: EDDIE 04/19/20853 RPT#: [id number] DC DATE:04/18/20 STATUS: DIS IN [facility] [address] [place] [address] END OF REPORT
== END 2020-04-18 16:17 | DRG 186 ==
LOC: D.MS 14:11
PROVIDERS: Emergency Medicine; General Practice; Internal Medicine Pulmonary Disease; ADMIT Legal Medicine; ATTEND Legal Medicine
PROC: 0W993ZZ Drainage of Right Pleural Cavity, Percutaneous Approach (ICD-10-PCS; principal; 2020-04-10 10:30)
DX: J90 Pleural effusion, not elsewhere classified (principal); J15.0 Pneumonia due to Klebsiella pneumoniae; J98.11 Atelectasis; N39.0 Urinary tract infection, site not specified; I10 Essential (primary) hypertension; F03.90 Unspecified dementia, unspecified severity, without behavioral disturbance, psychotic disturbance, mood disturbance, and anxiety; I12.9 Hypertensive chronic kidney disease with stage 1 through stage 4 chronic kidney disease, or unspecified chronic kidney disease; N18.9 Chronic kidney disease, unspecified; M19.90 Unspecified osteoarthritis, unspecified site; K58.9 Irritable bowel syndrome, unspecified; D64.9 Anemia, unspecified